=== PATIENT | male | born 1940 | race Caucasian/White ===

== ENCOUNTER → 2019-12-04 | Outpatient (CLI) | payer MEDICARE, OTHER | END | disposition home or self-care (01) | LOC: CFH 10:59 | PROVIDERS: ATTEND Family Medicine | DX: M85.88 Other specified disorders of bone density and structure, other site (principal); E21.0 Primary hyperparathyroidism | CPT/HCPCS: 77080 ==

== ENCOUNTER 2020-01-16 15:06 | Inpatient (IN) | payer MEDICARE, OTHER ==
[~2020-01-16] VITALS: Ht 167.6 cm; Wt 70.5 kg
--- NOTE | 2020-01-16 15:21 | NUR ---
PT TAKEN BACK TO ROOM VIA WHEELCHAIR
[2020-01-16] MEDS ORDERED: DILTIAZEM 5 MG/ML, 5ML ONE (15:27)
[2020-01-16] MEDS ORDERED: ADENOSINE 6 MG/2 ML ONE (15:27)
--- NOTE | 2020-01-16 15:30 | NUR ---
PT C/O IRREGULAR HEART BEAT, STARTED ABOUT 1 HOUR AGO WHILE SITTING. PT HAS HAD INTERMITTENT FEVERS, DRY COUGH OVER LAST COUPLE WEEKS. PT TESTED FOR NEG FOR COVID. NOBODY ELSE HAS BEEN SICK AT HOME. PT CONNECTED TO MONITORING. TASK RNS AT BEDSIDE FOR IV INSERT AND DIRECTOR OF PHOTOGRAPHY. MD AT BEDSIDE FOR ASSESSMENT.
[2020-01-16] MEDS ORDERED: TAMS-11 PO (15:33)
--- NOTE | 2020-01-16 15:44 | NUR ---
AT BEDSIDE. ADENOSINE ADMIN. PT IN A-FLUTTER.
[2020-01-16] MEDS ORDERED: DILTIAZEM 125 MG in SODIUM CHLORIDE 0.9% 100 ML IV SCH (15:50)
[2020-01-16 15:51] LABS: BASOPHILS # (AUTO) 0.01 x10^3/uL (0-0.1); BASOPHILS % (AUTO) 0 % (0-1); EOSINOPHILS % (AUTO) 2 % (1-7); LYMPHOCYTES # (AUTO) 0.88 x10^3/uL (1-3.4); LYMPHOCYTES % (AUTO) 8 % (22-44); MD NO; MEAN CORPUSCULAR HEMOGLOBIN 31.8 pg (27.5-34.5); MEAN CORPUSCULAR HGB CONC 33.5 g/dL (33.2-36.2); MEAN CORPUSCULAR VOLUME 95.1 fL (81-97); MEAN PLATELET VOLUME 7.2 fL (7.4-10.4); MONOCYTES # (AUTO) 0.68 x10^3/uL (0.2-0.8); MONOCYTES % (AUTO) 6 % (2-9); NEUTROPHILS # (AUTO) 8.86 x10^3/uL (1.8-6.8); NEUTROPHILS % (AUTO) 83 % (42-75); PLATELET COUNT 446 x10^3/uL (130-400); RED BLOOD COUNT 4.37 x10^6/uL (4.38-5.82); RED CELL DISTRIBUTION WIDTH 12.8 % (9.4-14.8)
[2020-01-16 16:00] LABS: ALANINE AMINOTRANSFERASE 52 U/L (12-78); ALBUMIN 2.8 g/dL (3.4-5.0); ANION GAP 7 mmol/L (5-15); CALCIUM 8.5 mg/dL (8.5-10.1); CHLORIDE 106 mmol/L (98-107); CREATININE 0.93 mg/dL (0.7-1.3)
[2020-01-16] MEDS ORDERED: ADENOSINE 6 MG/2 ML IVPush ONE (16:00)
[2020-01-16] MEDS ORDERED: SODIUM CHLORIDE FLUSH 10ML SYR IVF ONE (16:00)
[2020-01-16] MEDS ORDERED: DILTIAZEM 5 MG/ML, 5ML IVPush ONE ×2 (16:00→17:00)
--- NOTE | 2020-01-16 16:00 | NUR ---
CARDIZEM ADMIN PER SEP. PT HR LOWERED TO LOW 100s FOR 5-10 SECONDS, THEN ELEVATED AGAIN TO 150s. AWARE. CARDIZEM DRIP REQUESTED FROM PHARMACY. PT RESTING ON [facility]. ABBY.
[2020-01-16 16:04] LABS: ALKALINE PHOSPHATASE 65 U/L (45-117); BILIRUBIN,TOTAL 0.6 mg/dL (0.2-1.0); TOTAL PROTEIN 7.1 g/dL (6.4-8.2)
--- NOTE | 2020-01-16 16:28 | NUR ---
ANNELIESE PETERS STARTED PER SEP. PT RESTING ON [employer]. NADN. PT TEXTING WITH .
[2020-01-16 16:33] LABS: TROPONIN I < 0.015 ng/mL (0.000-0.045)
[2020-01-16] MEDS ORDERED: MESA1.2T PO (16:35)
--- NOTE | 2020-01-16 16:35 | NUR ---
RECEIVED VERBAL ORDER FROM MD FOR CARDIZEM 10MG IV ONCE. ADMINISTRATIVE OFFICE ASSISTANT PER ORDER.
--- NOTE | 2020-01-16 16:47 | NUR ---
NEW ORDER FOR 2 SETS BLOOD CULTURES. ABX STARTED AFTER LAB COLLECTS BLOOD.
[2020-01-16] MEDS ORDERED: AZITHROMYCIN 500 MG in SODIUM CHLORIDE 0.9% 250 ML IV ONE (17:00)
[2020-01-16] MEDS ORDERED: METOPROLOL 1 MG/ML, 5ML ONE (17:09)
[2020-01-16] MEDS: METOPROLOL 1 MG/ML, 5ML IVPush PRN (17:13)
--- NOTE | 2020-01-16 17:22 | NUR ---
DILT DRIP STOPPED PER . METOPROLOL ADMIN PER SEP, HR DECREASED TO MID 80s. 2 SETS BLOOD CULTURES COLLECTED BY REFINERY OPERATOR [employer]. IV ABX RUNNING PER SEP.
[2020-01-16] MEDS ORDERED: METOPROLOL TARTRATE 25 MG TAB PO ONE (17:30)
[2020-01-16] MEDS ORDERED: CEFTRIAXONE PMX 1GM/50ML 50 ML IV ONE (17:30)
[2020-01-16] MEDS ORDERED: METOPROLOL TARTRATE 25 MG TAB ONE (17:48)
[2020-01-16] MEDS ORDERED: CEFTRIAXONE PMX 1GM/50ML 50 ML ONE (17:48)
--- NOTE | 2020-01-16 17:56 | NUR ---
HOSPITALIST AT BEDSIDE.
--- NOTE | 2020-01-16 18:02 | NUR ---
PT ADMIT HOLD IN ER. DIET TRAY AND HOSPITAL BED REQUESTED.
[2020-01-16] MEDS: DILTIAZEM 125 MG in SODIUM CHLORIDE 0.9% 100 ML IV SCH (18:25)
[2020-01-16] MEDS ORDERED: POTASSIUM CHLORIDE 20 MEQ TAB.ER.PRT ONE (18:28)
[2020-01-16] MEDS: CEFTRIAXONE PMX 1GM/50ML 50 ML IV SCH (18:30)
[2020-01-16] MEDS ORDERED: ONDANSETRON ODT 4 MG PO PRN (18:30)
[2020-01-16] MEDS: HEPARIN 5,000 UNITS/ML, 1ML SQ SCH (18:30)
[2020-01-16] MEDS ORDERED: ACETAMINOPHEN 325 MG TABLET PO PRN (18:30)
[2020-01-16] MEDS ORDERED: POTASSIUM CHLORIDE 20 MEQ TAB.ER.PRT PO ONE (18:30)
[2020-01-16] MEDS ORDERED: BISACODYL 10 MG SUPP PR PRN (18:30)
[2020-01-16] MEDS ORDERED: POLYETHYLENE GLYCOL 17 GM PACKET PO PRN (18:30)
[2020-01-16] MEDS: AZITHROMYCIN 500 MG in SODIUM CHLORIDE 0.9% 250 ML IV SCH (18:57)
--- NOTE | 2020-01-16 18:59 | NUR ---
LUNCH BREAK NOTE: PT MEDICATED ORDERED. HR 135. PRIMARY RN BACK FROM LUNCH.
[2020-01-16] MEDS ORDERED: MAGNESIUM PO (19:06)
[2020-01-16] MEDS ORDERED: CALCIUM PO (19:06)
[2020-01-16] MEDS ORDERED: FINA5TAB4 PO (19:06)
--- NOTE | 2020-01-16 19:25 | NUR ---
PT PLACED ON HOSPITAL BED. PT ATE 75% DINNER. EMPTIED URINAL.
[2020-01-16] MEDS ORDERED: DIGOXIN 0.25 MG/ML, 2ML IVPush ONE ×2 (19:30→23:30)
[2020-01-16] MEDS ORDERED: DIGOXIN 0.25 MG/ML, 2ML ONE ×2 (19:31→22:59)
--- NOTE | 2020-01-16 19:38 | NUR ---
MEDS ADMIN PER SEP. PT RESTING COMFORTABLY ON [facility]. ABBY.
[2020-01-16] MEDS: SODIUM CHLORIDE FLUSH 10ML SYR IVF SCH (20:54)
--- NOTE | 2020-01-16 22:02 | NUR ---
REPORT GIVEN TO NYA VALDOVINOS.
--- NOTE | 2020-01-16 23:14 | NUR ---
PATIENT UPDATED ON PLAN OF CARE. NO NOTED FURTHER NEEDS AT THIS TIME. DIGOXIN ADMINISTERED PER MAR, PATIENT TOLERATED WELL. JELLO WILL BE OBTAINED FROM FLOOR PER PATIENT REQUEST. VITAL SIGNS STABLE, CALL LIGHT WITHIN REACH, BED IN LOWEST LOCKED POSITION. WILL CONTINUE TO MONITOR.
--- NOTE | 2020-01-17 00:38 | NUR ---
PATIENT UP USING RESTROOM. TOLERATING WELL. NO NOTED FURTHER NEEDS. WILL CONTINUE TO MONITOR.
--- NOTE | 2020-01-17 00:49 | NUR ---
report of pt from brisa huerta and assuming care of pt at this time.
--- NOTE | 2020-01-17 00:49 | NUR ---
REPORT GIVEN TO BONIFACIO GATES.
--- NOTE | 2020-01-17 01:04 | NUR ---
pt asleep in [facility] at this time; radha. pt attached to vs and cardiac monitors. vss.
[2020-01-17] MEDS ORDERED: HEPARIN 5,000 UNITS/ML, 1ML ONE (02:23)
[2020-01-17] MEDS ORDERED: DIGOXIN 0.25 MG/ML, 2ML ONE (02:30)
[2020-01-17] MEDS: HEPARIN 5,000 UNITS/ML, 1ML SQ SCH ×2 (02:47→10:30)
--- NOTE | 2020-01-17 02:54 | NUR ---
PT MEDICATED PER SEP. PT STANDING UP AT BS TO VOID INTO URINAL. PT PROVIDED WATER, NEW MASK, AND PILLOW PER PT REQUEST. PT VSS AND UPDATED IN EMR.
[2020-01-17] MEDS ORDERED: DIGOXIN 0.25 MG/ML, 2ML IVPush ONE (03:30)
--- NOTE | 2020-01-17 05:10 | NUR ---
REPORT FROM YAJAIRA VALDOVINOS ASSUMING CARE OF PT AT THIS TIME
[2020-01-17] MEDS: DILTIAZEM 125 MG in SODIUM CHLORIDE 0.9% 100 ML IV SCH (05:19)
--- NOTE | 2020-01-17 05:25 | NUR ---
PHARM CALLED TO VERIFIED CARDIZEM RETIME, PER PHARM OK TO START MED NOW.
[2020-01-17 05:28] LABS: MEAN CORPUSCULAR HEMOGLOBIN 31.7 pg (27.5-34.5); MEAN CORPUSCULAR VOLUME 95.9 fL (81-97); MEAN PLATELET VOLUME 6.9 fL (7.4-10.4); PLATELET COUNT 445 x10^3/uL (130-400); RED BLOOD COUNT 4.32 x10^6/uL (4.38-5.82); RED CELL DISTRIBUTION WIDTH 12.5 % (9.4-14.8)
--- NOTE | 2020-01-17 05:28 | NUR ---
pt moved from er 26 to er 37. pt attached to air sampling and monitoring and vs machines. vss. report of pt to brisa harris at this time.
[2020-01-17 05:35] LABS: ANION GAP 5 mmol/L (5-15); CALCIUM 8.8 mg/dL (8.5-10.1); CHLORIDE 109 mmol/L (98-107); CREATININE 0.81 mg/dL (0.7-1.3)
[2020-01-17 05:39] LABS: TROPONIN I < 0.015 ng/mL (0.000-0.045)
[2020-01-17 05:59] LABS: BASOPHILS # (AUTO) 0.03 x10^3/uL (0-0.1); BASOPHILS % (AUTO) 0 % (0-1); EOSINOPHILS # (AUTO) 0.24 x10^3/uL (0-0.4); EOSINOPHILS % (AUTO) 2 % (1-7); LYMPHOCYTES # (AUTO) 1.23 x10^3/uL (1-3.4); LYMPHOCYTES % (AUTO) 11 % (22-44); MD SCAN; MONOCYTES # (AUTO) 0.86 x10^3/uL (0.2-0.8); MONOCYTES % (AUTO) 8 % (2-9); NEUTROPHILS # (AUTO) 8.71 x10^3/uL (1.8-6.8); NEUTROPHILS % (AUTO) 79 % (42-75)
[2020-01-17] MEDS ORDERED: METOPROLOL 1 MG/ML, 5ML ONE (06:16)
[2020-01-17] MEDS: METOPROLOL 1 MG/ML, 5ML IVPush PRN (06:21)
--- NOTE | 2020-01-17 06:35 | NUR ---
PT REPORTS FLUID DRIPPING DOWN FROM IV SITE, ATTEMPTED REPOSITIONING WITH NO IMPROVEMENT, NEW IV STARTED AT THIS TIME. PT STS HIS ARM FEELS MUCH BETTER
--- NOTE | 2020-01-17 07:30 | NUR ---
REPORT RECIEVED FROM RU VALDOVINOS. STEADY AMBULATION TO BATHROOM, BACK RESTING IN BED.
[2020-01-17] MEDS: SODIUM CHLORIDE FLUSH 10ML SYR IVF SCH ×2 (07:59→20:52)
--- NOTE | 2020-01-17 09:29 | NUR ---
BREAK RN FOR PRIMARY RN AYO. PT RESTING IN POSITION OF COMFORT. VSS. PULSE OX 94% RA. ALL NEEDS MET AND ADDRESS. CALL LIGHT IN REACH. FALL PRECAUTIONS IN PLACE.
--- NOTE | 2020-01-17 09:44 | NUR ---
REPORT AND TRANSFER OF CARE BACK TO PRIMARY BONIFACIO ROLLINS AT THIS TIME.
[2020-01-17] MEDS ORDERED: SODIUM CHLORIDE 0.9% 1,000ML IVBOLUS ONE (10:00)
--- NOTE | 2020-01-17 10:35 | NUR ---
PT RESTING IN BED, [facility] AT BEDSIDE
--- NOTE | 2020-01-17 11:18 | NUR ---
Report to Joey VALDOVINOS. pt aware of Poc
[2020-01-17 11:56] VITALS: BP 114/58
[2020-01-17] MEDS: DILTIAZEM 30 MG TABLET PO SCH ×3 (12:00→20:52)
[2020-01-17] MEDS ORDERED: DILTIAZEM 60 MG TABLET ONE (12:05)
[2020-01-17] MEDS ORDERED: APIXABAN 5 MG TABLET ONE (12:05)
[2020-01-17] MEDS: APIXABAN 5 MG TABLET PO SCH ×2 (12:08→20:52)
[2020-01-17] MEDS ORDERED: CALC-118 PO (12:57)
[2020-01-17] MEDS: MESALAMINE 1.2 GM TABLET.DR PO SCH (16:40)
[2020-01-17] MEDS: TAMSULOSIN 0.4 MG CAP.ER.24H PO SCH (16:41)
[2020-01-17] MEDS: FINASTERIDE 5 MG TABLET PO SCH (16:41)
[2020-01-17 16:46] VITALS: BP 128/64
[2020-01-17] MEDS: CEFTRIAXONE PMX 1GM/50ML 50 ML IV SCH (17:24)
[2020-01-17] MEDS: AZITHROMYCIN 500 MG in SODIUM CHLORIDE 0.9% 250 ML IV SCH (18:32)
[2020-01-17 20:56] VITALS: BP 120/68
[2020-01-18 00:11] VITALS: BP 124/72
[2020-01-18 05:56] LABS: BASOPHILS # (AUTO) 0.03 x10^3/uL (0-0.1); BASOPHILS % (AUTO) 0 % (0-1); EOSINOPHILS # (AUTO) 0.19 x10^3/uL (0-0.4); EOSINOPHILS % (AUTO) 2 % (1-7); LYMPHOCYTES % (AUTO) 9 % (22-44); MD NO; MEAN CORPUSCULAR HEMOGLOBIN 30.8 pg (27.5-34.5); MEAN CORPUSCULAR VOLUME 96.4 fL (81-97); MEAN PLATELET VOLUME 6.9 fL (7.4-10.4); MONOCYTES # (AUTO) 0.76 x10^3/uL (0.2-0.8); MONOCYTES % (AUTO) 7 % (2-9); NEUTROPHILS # (AUTO) 9.08 x10^3/uL (1.8-6.8); NEUTROPHILS % (AUTO) 82 % (42-75); PLATELET COUNT 446 x10^3/uL (130-400); RED BLOOD COUNT 4.39 x10^6/uL (4.38-5.82); RED CELL DISTRIBUTION WIDTH 13.1 % (9.4-14.8)
[2020-01-18 06:10] LABS: ALBUMIN 2.6 g/dL (3.4-5.0); ANION GAP 6 mmol/L (5-15); CALCIUM 8.4 mg/dL (8.5-10.1); CHLORIDE 111 mmol/L (98-107)
[2020-01-18 06:12] LABS: CREATININE 0.73 mg/dL (0.7-1.3)
[2020-01-18 08:00] VITALS: BP 109/67
[2020-01-18 08:12] LABS: C-REACTIVE PROTEIN, QUANT 5.5 mg/dL (0.02-0.49)
[2020-01-18] MEDS: DILTIAZEM 60 MG TABLET PO SCH ×3 (09:23→21:04)
[2020-01-18] MEDS: SODIUM CHLORIDE FLUSH 10ML SYR IVF SCH ×2 (09:24→21:00)
[2020-01-18] MEDS: APIXABAN 5 MG TABLET PO SCH ×2 (09:24→21:05)
[2020-01-18 14:20] VITALS: BP 106/53
[2020-01-18] MEDS: CEFTRIAXONE PMX 1GM/50ML 50 ML IV SCH (17:06)
[2020-01-18] MEDS: FINASTERIDE 5 MG TABLET PO SCH (17:55)
[2020-01-18] MEDS: TAMSULOSIN 0.4 MG CAP.ER.24H PO SCH (17:55)
[2020-01-18] MEDS: MESALAMINE 1.2 GM TABLET.DR PO SCH (17:56)
[2020-01-18] MEDS: AZITHROMYCIN 500 MG in SODIUM CHLORIDE 0.9% 250 ML IV SCH (18:09)
[2020-01-18 18:51] VITALS: BP 103/61
[2020-01-19 00:59] VITALS: BP 150/74
[2020-01-19 07:03] LABS: BASOPHILS # (AUTO) 0.02 x10^3/uL (0-0.1); BASOPHILS % (AUTO) 0 % (0-1); EOSINOPHILS # (AUTO) 0.14 x10^3/uL (0-0.4); EOSINOPHILS % (AUTO) 1 % (1-7); LYMPHOCYTES # (AUTO) 0.81 x10^3/uL (1-3.4); LYMPHOCYTES % (AUTO) 7 % (22-44); MD NO; MEAN CORPUSCULAR HEMOGLOBIN 31.1 pg (27.5-34.5); MEAN CORPUSCULAR HGB CONC 32.6 g/dL (33.2-36.2); MEAN CORPUSCULAR VOLUME 95.4 fL (81-97); MONOCYTES % (AUTO) 6 % (2-9); NEUTROPHILS # (AUTO) 10.87 x10^3/uL (1.8-6.8); NEUTROPHILS % (AUTO) 87 % (42-75); PLATELET COUNT 467 x10^3/uL (130-400); RED BLOOD COUNT 4.43 x10^6/uL (4.38-5.82); RED CELL DISTRIBUTION WIDTH 12.6 % (9.4-14.8)
[2020-01-19 07:09] LABS: ANION GAP 8 mmol/L (5-15); CALCIUM 8.6 mg/dL (8.5-10.1); CHLORIDE 106 mmol/L (98-107); CREATININE 0.83 mg/dL (0.7-1.3)
[2020-01-19 08:48] VITALS: BP 107/63
[2020-01-19] MEDS: SODIUM CHLORIDE FLUSH 10ML SYR IVF SCH ×2 (09:00→20:42)
[2020-01-19] MEDS: DILTIAZEM 60 MG TABLET PO SCH (09:13)
[2020-01-19] MEDS: TAMSULOSIN 0.4 MG CAP.ER.24H PO SCH (09:13)
[2020-01-19] MEDS: FINASTERIDE 5 MG TABLET PO SCH (09:13)
[2020-01-19] MEDS: APIXABAN 5 MG TABLET PO SCH ×2 (09:13→20:41)
[2020-01-19] MEDS ORDERED: DILTIAZEM 120 MG CAP.ER.12H PO SCH (10:00)
[2020-01-19 13:04] VITALS: BP 96/54
[2020-01-19] MEDS ORDERED: DILTIAZEM 240 MG CAP.ER.24H PO SCH (17:00)
[2020-01-19 17:02] VITALS: BP 145/78
[2020-01-19] MEDS: CEFTRIAXONE PMX 1GM/50ML 50 ML IV SCH (18:09)
[2020-01-19] MEDS: AZITHROMYCIN 500 MG in SODIUM CHLORIDE 0.9% 250 ML IV SCH (18:45)
[2020-01-19 20:11] VITALS: BP 106/56
[2020-01-19] MEDS ORDERED: TAMSULOSIN 0.4 MG CAP.ER.24H PO SCH (21:00)
[2020-01-19] MEDS ORDERED: FINASTERIDE 5 MG TABLET PO SCH (21:00)
[2020-01-19] MEDS ORDERED: MESALAMINE 1.2 GM TABLET.DR PO SCH (21:00)
[2020-01-20 00:44] VITALS: BP 113/71
[2020-01-20 07:55] VITALS: BP 111/67
[2020-01-20] MEDS: APIXABAN 5 MG TABLET PO SCH (10:16)
[2020-01-20] MEDS ORDERED: CEFD300C37 PO (11:01)
[2020-01-20] MEDS ORDERED: DILT240C55 PO (11:01)
[2020-01-20] MEDS ORDERED: AZIT250T PO (11:01)
[2020-01-20] MEDS ORDERED: APIX5TAB PO (11:01)
== END 2020-01-20 12:40 | disposition home or self-care (01) | DRG 308 ==
LOC: ED 17:20 → EDIP 17:30 → ED 17:37 → ICU 01-17 11:43 → 5SO 01-18 18:36 → DCLOUNGE 01-20 12:35
PROVIDERS: ADMIT Hospitalist; ATTEND Family Medicine
DX: I48.0 Paroxysmal atrial fibrillation (principal); J18.9 Pneumonia, unspecified organism; D68.69 Other thrombophilia; I48.91 Unspecified atrial fibrillation; I48.92 Unspecified atrial flutter; E87.6 Hypokalemia; R79.89 Other specified abnormal findings of blood chemistry; N40.0 Benign prostatic hyperplasia without lower urinary tract symptoms; K58.9 Irritable bowel syndrome, unspecified; D47.3 Essential (hemorrhagic) thrombocythemia; Z79.899 Other long term (current) drug therapy; Z80.0 Family history of malignant neoplasm of digestive organs; Z90.49 Acquired absence of other specified parts of digestive tract; Z88.7 Allergy status to serum and vaccine; Z78.9 Other specified health status; Z82.49 Family history of ischemic heart disease and other diseases of the circulatory system; Z20.828 Contact with and (suspected) exposure to other viral communicable diseases
CPT/HCPCS: 36415; 71045; 80048; 80053; 80069; 80162; 83615; 83735; 83880; 84443; 84484; 85025; 86140; 87040; 87081; 87635; 93005; 93308; 93321; 93325; 96365; 96367; 96372; 96375; 96376; 99291; G0378; J0153; J0456; J0696; J1644; J1160; J7030; J7050